=== PATIENT | male | born 1985 | race Caucasian/White ===

== ENCOUNTER 2017-09-26 11:05 | Emergency (ER) | payer MEDICAID ==
[~2017-09-26] VITALS: Ht 180.3 cm; Wt 124.3 kg
[~2017-09-26 11:05] MED LIST: APAP/HYDROCODON1 T13 PO; COL100 PO; FLAGYL500 MG PO; LAC PO; LEVAQUIN500 MG PO; ZOF4 PO
[2017-09-26 11:32] VITALS: Ht 180.3 cm; Wt 124.3 kg
[2017-09-26 14:29] VITALS: BP 144/92
== END 2017-09-26 14:41 | disposition home or self-care (01) ==
LOC: ED 11:05
DX: K42.9 Umbilical hernia without obstruction or gangrene (principal)